=== PATIENT | male | born 1975 | race African-American/Black ===

== ENCOUNTER → 2017-04-18 | Outpatient (CLI) | payer OTHER ==
[~2017-04-18] MED LIST: AMLO2.5T2 PO; LISI-170 PO; SIMV10TA PO
== END | disposition home or self-care (01) ==
LOC: CVU 06:59
PROVIDERS: ATTEND Family Medicine
DX: I34.0 Nonrheumatic mitral (valve) insufficiency (principal); I37.1 Nonrheumatic pulmonary valve insufficiency; I51.7 Cardiomegaly; I10 Essential (primary) hypertension; G47.30 Sleep apnea, unspecified; E78.5 Hyperlipidemia, unspecified
CPT/HCPCS: 93306

== ENCOUNTER → 2018-11-08 | Outpatient (CLI) | payer OTHER | END | disposition home or self-care (01) | LOC: LAB 17:40 | PROVIDERS: ATTEND Family Medicine Sports Medicine | DX: R07.9 Chest pain, unspecified (principal) | CPT/HCPCS: 36415; 85379 ==